=== PATIENT | female | born 1935 | race Caucasian/White ===

== ENCOUNTER 2017-06-09 12:21 | Emergency (ER) | payer MEDICARE, OTHER ==
[~2017-06-09] VITALS: Ht 152.4 cm; Wt 85.3 kg
[~2017-06-09 12:21] MED LIST: AMOXICILLIN 50500 MG PO; ASA5UEC PO; CALTRATE 600 +1 EAC1 PO; CARAFATE 11 GM/10 M1 PO; CHOLESTEROL PILL; EVISTA PO; FUROSEMIDE 40 M40 M1 PO; HYDROCODONE-AP1 EAC6 PO; IBUPROFEN 800800 M1 PO; LEVAQUIN 500 M500 M2 PO; MEDROLDOSEPACK PO; NERVE PILL; ONDANSETRON HCL4 M2 PO; PREDNISONE 10 M10 MG PO; PROTONIX 20 MG20 M1 PO; SERTRALINE HCL50 MG PO; ZOLOFT; ZPAK PO; [UNRECOGNIZED DRUG - OTHER] PO
[2017-06-09] MEDS ORDERED: TYLENOL325 M1 PO (12:40)
[2017-06-09 13:10] LABS: ABSOLUTE BASOPHILS 0.1 thou/uL (0.0-0.2); ABSOLUTE EOSINOPHILS 0.1 thou/uL (0.0-0.7); ABSOLUTE MONOCYTES 0.6 thou/uL (0.0-1.2); BASOPHILS 0.8 %; EOSINOPHILS 0.8 %; HEMATOCRIT 39.6 % (37.0-47.0); HEMOGLOBIN 13.1 gm/dL (12.0-15.0); LYMPHOCYTES 12.6 %; MCHC 33.1 g/dL (28.0-37.0); MCV 87.6 fL (80.0-100.0); MONOCYTES 7.4 %; MPV 9.1 fl. (7.2-11.1); NUCLEATED RBCS 0 /100WBC; PLATELET COUNT* 249 thou/uL (150-400); POLYS 78.4 %; RBC 4.52 mil/uL (4.20-5.00); RDW-CV 14.1 % (10.5-14.5); WBC 7.7 thou/uL (4.0-11.0)
[2017-06-09 13:18] LABS: ANION GAP 4 mmol/L (7-16); BUN 11 mg/dL (7-18); CALCIUM 9.5 mg/dL (8.5-10.1); CHLORIDE 106 mmol/L (98-107); CO2 29 mmol/L (21-32); CREATININE 0.7 mg/dL (0.6-1.3); GLUCOSE 118 mg/dL (70-99); SODIUM 139 mmol/L (136-145)
[2017-06-09 13:25] LABS: ALBUMIN 3.4 g/dL (3.4-5.0); ALKALINE PHOSPHATASE 105 U/L (46-116); LIPASE 175 U/L (73-393); SGOT 18 U/L (15-37); SGPT 19 U/L (30-65); TOTAL BILIRUBIN 0.9 mg/dL (<0.1-1.0); TROPONIN-I LEVEL <0.06 ng/mL (<0.06)
[2017-06-09 14:12] LABS: URINE BILIRUBIN NEGATIVE (Negative); URINE BLOOD TRACE (Negative); URINE CLARITY CLEAR; URINE COLOR YELLOW; URINE GLUCOSE-RANDOM NEGATIVE (Negative); URINE KETONES NEGATIVE (Negative); URINE LEUKOCYTES-REFLEX NEGATIVE (Negative); URINE NITRITE-REFLEX NEGATIVE (Negative); URINE PROTEIN NEGATIVE (Negative); URINE SPECIFIC GRAVITY 1.015 (1.005-1.030); URINE UROBILINOGEN 0.2 E.U./dl (0.2-1.0)
[2017-06-09] MEDS ORDERED: ZOFRAN4 MG PO (16:05)
[2017-06-09 16:10] VITALS: BP 146/76
--- NOTE | 2017-06-09 16:14 | EKG ---
[place] [address] ELECTROCARDIOGRAM REPORT Name: FADY DILLON Room: [facility]#: [id number] Admission: 06/09/17 Attend Phys: Discharge: Date of : 39 Report #: [id number] THIS REPORT FOR: //name// [facility] ED Test Date: 2017-06-09 Test Time: 13:12:59 Pat Name: FADY DILLON Department: Room: Gender: F [place]: DEIRDRE : 1935 Requested By: Ari Golden Order Number: [id number] : Hebert Hdez Measurements Intervals [place] Rate: 58 P: 56 SD: 161 QRS: 12 QRSD: 92 T: 9 QT: 438 QTc: 431 Interpretive Statements Sinus rhythm Compared to ECG 10/20/2016 09:12:00 Atrial premature complex(es) no longer present Electronically Signed On 06-09-2017 16:14:47 CDT by Hebert Hdez [email or web address] <ELECTRONICALLY SIGNED> By: Hebert Hdez MD, [facility] 06/09/17 1614 1312 1312 Hebert Hdez MD, FACC /EPI
== END 2017-06-09 16:18 | disposition home or self-care (01) ==
LOC: M.ERS 12:21
PROVIDERS: Emergency Medicine
DX: K52.9 Noninfective gastroenteritis and colitis, unspecified (principal); M81.0 Age-related osteoporosis without current pathological fracture; Z90.49 Acquired absence of other specified parts of digestive tract

== ENCOUNTER 2019-04-17 17:05 | Inpatient (IN) | payer MEDICARE, OTHER ==
[~2019-04-17] VITALS: Ht 162.6 cm; Wt 80.9 kg
[~2019-04-17 17:05] MED LIST changes: +TYLENOL325 M1 PO; +ZOFRAN4 MG PO
[2019-04-17 17:15] VITALS: BP 180/93
[2019-04-17 17:53] LABS: HEMATOCRIT 39.8 % (37.0-47.0); HEMOGLOBIN 13.5 gm/dL (12.0-15.0); MCH 29.7 pg (26.0-34.0); MCHC 33.8 g/dL (28.0-37.0); MPV 8.9 fl. (7.2-11.1); NUCLEATED RBCS 0 /100WBC; PLATELET COUNT* 248 thou/uL (150-400); RBC 4.53 mil/uL (4.20-5.00); RDW-CV 13.1 % (10.5-14.5); WBC 19.1 thou/uL (4.0-11.0)
[2019-04-17 18:02] LABS: CALCIUM 9.4 mg/dL (8.5-10.1); CREATININE 0.8 mg/dL (0.6-1.3); POTASSIUM 3.7 mmol/L (3.5-5.1)
[2019-04-17 18:07] LABS: ALBUMIN 3.5 g/dL (3.4-5.0); TOTAL BILIRUBIN 1.3 mg/dL (<0.1-1.0); TOTAL PROTEIN 7.2 g/dL (6.4-8.2)
[2019-04-17 18:49] LABS: URINE BILIRUBIN NEGATIVE (Negative); URINE BLOOD NEGATIVE (Negative); URINE CLARITY CLOUDY; URINE COLOR YELLOW; URINE GLUCOSE-RANDOM NEGATIVE (Negative); URINE KETONES NEGATIVE (Negative); URINE LEUKOCYTES-REFLEX NEGATIVE (Negative); URINE NITRITE-REFLEX NEGATIVE (Negative); URINE PROTEIN NEGATIVE (Negative); URINE SPECIFIC GRAVITY 1.015 (1.005-1.030); URINE UROBILINOGEN 0.2 E.U./dl (0.2-1.0)
[2019-04-17 19:17] LABS: ABSOLUTE BASOPHILS 0.4 thou/uL (0.0-0.2); ABSOLUTE LYMPHOCYTES 0.2 thou/uL (0.8-5.3); ABSOLUTE NEUTROPHILS 17.6 thou/uL (1.6-8.1); PLATELET ESTIMATE ADEQUATE
[2019-04-17 19:28] LABS: BACTERIA-REFLEX >30 Many /HPF (None Seen); CASTS None Seen /LPF (None Seen); CRYSTALS None Seen /LPF (None Seen); MUCUS 4-6 Moderate strn/LPF (None Seen); SQUAMOUS >10 Many /LPF (0-3); URINE RBC 0-2 Rare /HPF (0-2); URINE WBC-REFLEX 0-5 Rare /HPF (0-5)
[2019-04-17 20:03] LABS: INFLUENZA A ANTIGEN Negative (Negative); INFLUENZA B ANTIGEN Negative (Negative)
[2019-04-17 21:50] VITALS: BP 165/81
[2019-04-17 22:14] VITALS: BP 197/69
[2019-04-18 04:45] VITALS: BP 131/52
[2019-04-18 08:43] VITALS: BP 139/54
[2019-04-18 11:54] VITALS: BP 116/37
[2019-04-18 11:54] LABS: APTT 25.5 Seconds (25.0-31.3); PROTIME 10.6 Seconds (9.20-11.50)
[2019-04-18 13:08] VITALS: BP 116/37
[2019-04-18 18:30] VITALS: BP 137/53
[2019-04-18 19:50] VITALS: BP 115/46
[2019-04-19 00:43] VITALS: BP 109/73
[2019-04-19 04:00] VITALS: BP 107/36
[2019-04-19 04:05] LABS: HEMATOCRIT 29.1 % (37.0-47.0)
[2019-04-19 05:13] LABS: HEMOGLOBIN 9.9 gm/dL (12.0-15.0)
[2019-04-19 08:27] VITALS: BP 113/35
[2019-04-19 12:11] VITALS: BP 89/32
[2019-04-19 13:15] LABS: CALCIUM 8.4 mg/dL (8.5-10.1); POTASSIUM 4.7 mmol/L (3.5-5.1)
[2019-04-19 18:08] VITALS: BP 107/34
[2019-04-19 19:50] VITALS: BP 109/31
--- NOTE | 2019-04-19 21:48 | OP ---
[address] [address] OPERATIVE REPORT Name: FADY DILLON Room: [address] IN M.R.#: [id number] Admission: 04/17/19 Attend Phys: Andres Paul Discharge: Date of : 39 Report #: [id number] THIS REPORT FOR: //name// cc: ASHU Leonard family physician/PCP ASHU - Aisha family physician/PCP ~ THIS REPORT FOR: //name// CC: ASHU physician/PCP Andrew Amezcua DATE OF SERVICE: 04/18/2019 PREOPERATIVE DIAGNOSIS: Left intertrochanteric femur fracture, comminuted, displaced. POSTOPERATIVE DIAGNOSIS: Left intertrochanteric femur fracture, comminuted, displaced. PROCEDURE: Open reduction and internal fixation, left comminuted intertrochanteric femur fracture. SURGEON: Anselmo Donato DO SEARCH ENGINE OPTIMIZATION STRATEGIST: Benny Trujillo DO ANESTHESIA: General. ANTIBIOTICS: Ancef IV. FLUIDS: 400 mL lactated Ringer's. ESTIMATED BLOOD LOSS: 100 mL. COMPLICATIONS: None. SPECIMENS: None. DRAINS: None. CONDITION OF PATIENT: Stable to PACU. IMPLANTS: Herbie Gamma nail 10 x 170 mm x 125 degree with lag screw and distal interlocking static screw. INDICATIONS FOR PROCEDURE: The patient admitted to [facility] with left hip fracture. We were consulted. I went over with the patient and [address] [place] [address] OPERATIVE REPORT Name: FADY DILLON Room: [address] IN ..#: [id number] Admission: 04/17/19 Attend Phys: Andres Paul Discharge: Date of : 39 Report #: [id number] her daughter and other loved ones that were present the diagnosis, exam findings, imaging, treatment options, plan of surgery with reasoning indications and risks and complications. Please see her notes for full details of our discussion had. She wished to proceed with surgery as planned. We obtained consent. DESCRIPTION OF PROCEDURE: I marked the left lower extremity in the presence of the operative team members. Everyone agreed this was correct. She was taken back to the operative suite where a briefing was performed indicating correct patient, procedure, site, antibiotics and that implants were present and sterile. All team members agreed. General anesthetic administered, transferred over to the operative table in supine position, well-padded and secured. The left lower extremity was sterilely prepped and draped in standard fashion. It should be noted that prior to that we performed a closed reduction, where we brought in C-arm on multiplanar imaging and confirmed that we overall established reduction; however, there would need to be an open component of this with at least a bone hook to try and close down some of the comminution. The left lower extremity had been sterilely prepped and draped in standard fashion. Timeout was performed indicating correct patient, procedure, site, antibiotics and that implants were present and sterile. All team members agreed. Marked out incisions with the aid of C-arm imaging. Proximal to the greater trochanter, scalpel was taken through skin, dissection down to the greater trochanter. Smooth-tipped guidewire inserted into the femur and advanced on multiplanar imaging to be in appropriate position. We reamed over that. Implant timeout had been performed. We threw the final nail. Prior to passing the nail, we made sure that we were able to place a bone hook and reduce the comminuted aspect hole for this and also aid in the malreduction or malrotation. Nail was passed uneventfully. Made an incision for a double sleeve for lag screw placement. This was placed up against bone and multiplanar C-arm imaging helped to advance the guidewire across into the femoral neck and head; measured, reamed, and placed an appropriate-size screw, making sure that we took several images during screw insertion and we placed a second bone hook and holding those 2 bone hooks to aid in the reduction. The screw went in uneventfully, compressed through the nail, engaged our setscrew, backed off quarter turn confirming its engagement by no longer being able to advance the screwdriver handle. Removed the screwdriver and guidewire. We then made an incision distally for triple sleeve that was placed down to bone, drilled, measured and placed an appropriate distal static interlock screw. Removed the external aiming guide. Final images showed appropriate reduction and placement of hardware. Saved images and dismissed C-arm. Irrigated all incision sites with normal saline. Deep layers were closed with 0 Vicryl [id number] interrupted, subcutaneously closed with 2-0 Monocryl buried deep and daryl for skin. Debriefing performed where we confirmed procedure, blood loss, and that all counts were correct and final. All team members agreed. Sterile silver-impregnated dressings were applied. She was transferred off the operative table to her bed in supine position appropriately with no [address] [address] OPERATIVE REPORT Name: FADY DILLON Room: [address] IN .R.#: [id number] Admission: 04/17/19 Attend Phys: Andres Paul Discharge: Date of : 39 Report #: [id number] complication, extubated and taken to PACU stable. POSTOPERATIVE COURSE AND EVALUATION: I spoke with her daughter, addressed questions, she had stated satisfaction. She was thankful for my time and efforts. The patient was resting in PACU, stable vital signs, pain controlled, neurovascularly intact. Compartments soft and compressible. Negative Homans sign. PACU films showed stable implants and reduction. Weightbear as tolerated. PT, OT. DVT prophylaxis will be both pharmacological and mechanical until instructed otherwise. I reviewed the orders and postoperative plan with the resident physician, Dr. Trujillo. No changes at this time. Encouraged nursing, medical staff, the patient and her family to call anytime with questions or concerns. Case management to help with discharge planning. <ELECTRONICALLY SIGNED> By: Anselmo Donato DO 04/19/19 2148 1705 1912Anselmo Donato DO /nt
[2019-04-20] VITALS (8 sets, daily range): BP systolic 104–125; BP diastolic 31–49
[2019-04-20 05:02] LABS: HEMATOCRIT 21.1 % (37.0-47.0)
[2019-04-20 05:24] LABS: HEMOGLOBIN 7.3 gm/dL (12.0-15.0)
[2019-04-20] MEDS ORDERED: HYDROCODON-ACE1 EAC7 PO (11:56)
[2019-04-20] MEDS ORDERED: ELIQUIS5 MG PO (11:56)
[2019-04-20] MEDS ORDERED: MILK OF MA2400 MG/11 PO (11:56)
[2019-04-20] MEDS ORDERED: COLACE100 MG PO (11:56)
[2019-04-21 05:00] VITALS: BP 132/51
[2019-04-21 05:08] LABS: ABSOLUTE BASOPHILS 0.1 thou/uL (0.0-0.2); ABSOLUTE EOSINOPHILS 0.2 thou/uL (0.0-0.7); ABSOLUTE LYMPHOCYTES 1.1 thou/uL (0.8-5.3); ABSOLUTE MONOCYTES 1.2 thou/uL (0.0-1.2); ABSOLUTE NEUTROPHILS 6.6 thou/uL (1.6-8.1); BASOPHILS 0.7 %; EOSINOPHILS 2.2 %; HEMATOCRIT 21.8 % (37.0-47.0); HEMOGLOBIN 7.5 gm/dL (12.0-15.0); MCH 30.6 pg (26.0-34.0); MCHC 34.3 g/dL (28.0-37.0); MCV 89.3 fL (80.0-100.0); MONOCYTES 12.9 %; MPV 9.5 fl. (7.2-11.1); NUCLEATED RBCS 0 /100WBC; PLATELET COUNT* 192 thou/uL (150-400); POLYS 72.2 %; RBC 2.44 mil/uL (4.20-5.00); RDW-CV 12.9 % (10.5-14.5); WBC 9.1 thou/uL (4.0-11.0)
[2019-04-21 05:28] LABS: CALCIUM 8.9 mg/dL (8.5-10.1); CREATININE 0.7 mg/dL (0.6-1.3); POTASSIUM 4.2 mmol/L (3.5-5.1)
[2019-04-21 08:00] VITALS: BP 125/43
[2019-04-21 12:00] VITALS: BP 140/41
--- NOTE | 2019-04-28 14:56 | EKG ---
[place] [address] ELECTROCARDIOGRAM REPORT Name: LYNDSEY DILLONTY Jarod Room: [address] IN M.R.#: [id number] Admission: 04/17/19 Attend Phys: Andrew Amezcua Discharge: 04/21/19 Date of : 39 Date of Service: 04/17/19 1715 Report #: [id number] THIS REPORT FOR: //name// [facility] ED Test Date: 2019-04-17 Test Time: 17:15:20 Pat Name: FADY DILLON Department: Room: [facility] Gender: F On Site Manager: BHARGAVI : 1935 Requested By: Davie Bowser Order Number: [id number] MD: Rocky Cervantes Measurements Intervals [place] Rate: 82 P: 62 [place]: 158 QRS: 27 QRSD: 82 T: 23 QT: 415 QTc: 485 Interpretive Statements Sinus rhythm Probable left atrial enlargement Borderline prolonged QT interval Compared to ECG 06/09/2017 13:12:59 No significant changes Electronically Signed On 04-18-2019 16:31:53 DUMPLING MACHINE OPERATOR by Rocky Cervantes [email or web address] <ELECTRONICALLY SIGNED> By: Rocky Cervantes MD, FAC 04/18/19 1631 1715 1715 Rocky Cervantes MD, [facility] /EPI
== END 2019-04-21 14:22 | DRG 481 ==
LOC: M.ERS 17:05 → M.2W 20:18 → M.TBA-ER 20:18 → M.2W 21:39
PROVIDERS: Emergency Medicine; Emergency Medicine Emergency Medical Services; Internal Medicine; Orthopaedic Surgery; ADMIT Internal Medicine
PROC: 0QS706Z Reposition Left Upper Femur with Intramedullary Internal Fixation Device, Open Approach (ICD-10-PCS; principal; 2019-04-18)
DX: M80.852A Other osteoporosis with current pathological fracture, left femur, initial encounter for fracture (principal); R65.10 Systemic inflammatory response syndrome (SIRS) of non-infectious origin without acute organ dysfunction; D62 Acute posthemorrhagic anemia; S72.142A Displaced intertrochanteric fracture of left femur, initial encounter for closed fracture; I95.1 Orthostatic hypotension; L40.9 Psoriasis, unspecified; F32.9 Major depressive disorder, single episode, unspecified; Z60.2 Problems related to living alone; R01.1 Cardiac murmur, unspecified; M17.12 Unilateral primary osteoarthritis, left knee; F41.9 Anxiety disorder, unspecified; W19.XXXA Unspecified fall, initial encounter; Z85.3 Personal history of malignant neoplasm of breast; Z90.49 Acquired absence of other specified parts of digestive tract; Z92.3 Personal history of irradiation; Z79.899 Other long term (current) drug therapy; Y93.89 Activity, other specified; Y92.89 Other specified places as the place of occurrence of the external cause; Y99.8 Other external cause status

== ENCOUNTER 2019-04-21 14:20 | Inpatient (IN) | payer MEDICARE, OTHER ==
[~2019-04-21] VITALS: Ht 160 cm; Wt 80.3 kg
[~2019-04-21 14:20] MED LIST changes: +COLACE100 MG PO; +ELIQUIS5 MG PO; +HYDROCODON-ACE1 EAC7 PO; +MILK OF MA2400 MG/11 PO
[2019-04-21 19:20] VITALS: BP 119/40
[2019-04-22 07:00] VITALS: BP 133/40
[2019-04-22 09:24] LABS: HEMATOCRIT 21.9 % (37.0-47.0); HEMOGLOBIN 7.5 gm/dL (12.0-15.0); MCH 30.6 pg (26.0-34.0); MCHC 34.1 g/dL (28.0-37.0); MCV 89.6 fL (80.0-100.0); MPV 8.8 fl. (7.2-11.1); RBC 2.45 mil/uL (4.20-5.00); RDW-CV 13.1 % (10.5-14.5); WBC 7.6 thou/uL (4.0-11.0)
[2019-04-22 09:36] LABS: CALCIUM 9.2 mg/dL (8.5-10.1); CREATININE 0.7 mg/dL (0.6-1.3); POTASSIUM 4.3 mmol/L (3.5-5.1)
[2019-04-22 19:40] VITALS: BP 129/49
[2019-04-23 07:38] VITALS: BP 144/56
[2019-04-23 19:30] VITALS: BP 157/42
[2019-04-24 07:28] VITALS: BP 141/59
[2019-04-24 10:03] LABS: HEMATOCRIT 23.6 % (37.0-47.0); HEMOGLOBIN 8.1 gm/dL (12.0-15.0); MCH 30.9 pg (26.0-34.0); MCHC 34.5 g/dL (28.0-37.0); MCV 89.8 fL (80.0-100.0); MPV 8.9 fl. (7.2-11.1); RBC 2.62 mil/uL (4.20-5.00); WBC 9.9 thou/uL (4.0-11.0)
[2019-04-24 16:00] VITALS: BP 111/46
[2019-04-24 17:32] VITALS: BP 107/28
[2019-04-24 19:05] VITALS: BP 122/50
[2019-04-25 01:29] VITALS: BP 137/63
[2019-04-25 07:29] VITALS: BP 137/55
[2019-04-25 19:15] VITALS: BP 129/46
[2019-04-26 07:00] VITALS: BP 125/44
--- NOTE | 2019-04-26 16:32 | 2DMMODE ---
[place] [address] 2 D/M-MODE ECHOCARDIOGRAM Name: SANTANAFADY Jarod Room: [address] ADM IN .R.#: [id number] Admission: 04/21/19 Attend Phys: Jimmy James MD Discharge: Date of : 39 Date of Service: 04/26/19 1630 Report #: [id number] THIS REPORT FOR: cc: FAM - No family physician/PCP FAM - No family physician/PCP Rocky Cervantes MD [facility] ~ APPROVED REPORT Study performed: 04/26/2019 14:42:17 EXAM: Comprehensive 2D, Doppler, and color-flow Echocardiogram Patient Location: In-Patient Room #: [facility] Status: routine BSA: 1.84 HR: 80 bpm BP: 125/44 mmHg Rhythm: NSR Other Information Study Quality: Good Indications Murmur 2D Dimensions IVSd: 11.45 (7-11mm) LVOT Diam: 19.87 (18-24mm) LVDd: 36.43 mm PWd: 9.78 (7-11mm) Ascending Ao: 32.47 (22-36mm) LVDs: 19.94 (25-40mm) Aortic Root: 28.52 mm Volumes Left Atrial Volume (Systole) LA ESV Index: 38.10 mL/m2 Aortic Valve AoV Peak Rachid.: 2.44 m/s AO Peak Gr.: 23.78 mmHg LVOT Max P.92 mmHg AO Mean Gr.: 12.77 mmHg LVOT Mean P.41 mmHg LVOT Max V: 1.32 m/s AO V2 VTI: 48.02 cm LVOT Mean V: 0.85 m/s OTONIEL (VTI): 1.91 cm2 LVOT V1 VTI: 29.65 [place] [address] 2 D/M-MODE ECHOCARDIOGRAM Name: FADY DILLON Room: [address] IN ..#: [id number] Admission: 04/21/19 Attend Phys: Jimmy James MD Discharge: Date of : 39 Date of Service: 04/26/19 1630 Report #: [id number] Mitral Valve E/A Ratio: 1.06 MV Decel. Time: 209.27 ms MV E Max Rachid.: 1.15 m/s MV PHT: 60.69 ms MVA (PHT): 3.63 cm2 TDI E/Lateral E': 9.58 E/Medial E': 9.58 Medial E' Rachid.: 0.12 m/s Lateral E' Rachid.: 0.12 m/s Pulmonary Valve PV Peak Rachid.: 1.25 m/s PV Peak Gr.: 6.30 mmHg Tricuspid Valve RAP Estimate: 5.00 mmHg TR Peak Gr.: 27.88 mmHg RVSP: 32.00 mmHg PA Pressure: 32.00 mmHg Left Ventricle The left ventricle is normal size. There is normal LV segmental wall motion. There is normal left ventricular wall thickness. Left ventricular systolic function is normal. The left ventricular ejection fraction is within the normal range. LVEF is 60-65%. The left ventricular diastolic function is normal. Right Ventricle The right ventricle is normal size. The right ventricular systolic function is normal. Atria Left atrium is mildly dilated. The right atrium size is normal. Aortic Valve Mild aortic valve sclerosis. No aortic regurgitation is present. Mild aortic stenosis. Mitral Valve The mitral valve is normal in structure. Trace mitral regurgitation. No evidence of mitral valve stenosis. Tricuspid Valve The tricuspid valve is normal in structure. Mild tricuspid regurgitation. estimated pa pressure 30 [place] [address] 2 D/M-MODE ECHOCARDIOGRAM Name: FADY DILLON Room: [address] IN [facility]#: [id number] Admission: 04/21/19 Attend Phys: Jimmy James MD Discharge: Date of : 39 Date of Service: 04/26/19 1630 Report #: [id number] Pulmonic Valve The pulmonary valve is normal in structure. There is no pulmonic valvular regurgitation. Great Vessels The aortic root is normal in size. IVC is normal in size and collapses >50% with inspiration. Pericardium There is no pericardial effusion. <Conclusion> LVEF is 60-65%. Left atrium is mildly dilated. Mild aortic stenosis. <ELECTRONICALLY SIGNED> By: Rocky Cervantes MD, FACC 04/26/191629 29 29 Rocky Cervantes MD, FACC /INF
[2019-04-26 19:49] VITALS: BP 124/52
[2019-04-27 07:20] VITALS: BP 136/44
[2019-04-27 20:00] VITALS: BP 126/43
[2019-04-28 08:30] VITALS: BP 109/47
[2019-04-28 20:15] VITALS: BP 144/48
[2019-04-29 07:47] VITALS: BP 148/60
[2019-04-29 20:00] VITALS: BP 139/49
[2019-04-30 08:12] VITALS: BP 160/49
[2019-04-30 20:09] VITALS: BP 136/41
[2019-04-30 22:55] VITALS: BP 137/58
[2019-05-01 07:36] VITALS: BP 149/66
[2019-05-01 19:30] VITALS: BP 140/51
[2019-05-02 05:14] LABS: HEMOGLOBIN 8.2 gm/dL (12.0-15.0); MCHC 34.1 g/dL (28.0-37.0); MPV 7.8 fl. (7.2-11.1); RBC 2.64 mil/uL (4.20-5.00); RDW-CV 13.9 % (10.5-14.5); WBC 9.1 thou/uL (4.0-11.0)
[2019-05-02 05:29] LABS: ALBUMIN 2.4 g/dL (3.4-5.0); CREATININE 0.6 mg/dL (0.6-1.3); MAGNESIUM 1.8 mg/dL (1.8-2.4); PHOSPHORUS* 3.1 mg/dL (2.5-4.9); POTASSIUM 4.3 mmol/L (3.5-5.1)
[2019-05-02 08:30] VITALS: BP 134/53
[2019-05-02 19:40] VITALS: BP 138/58
[2019-05-03 07:33] VITALS: BP 133/47
[2019-05-03 19:55] VITALS: BP 126/58
[2019-05-04 08:00] VITALS: BP 136/60
[2019-05-04 16:28] VITALS: BP 136/60
[2019-05-04 20:00] VITALS: BP 127/45; BP 148/42
[2019-05-05 07:44] VITALS: BP 125/54
[2019-05-05] MEDS ORDERED: ASPIRIN325 PO (11:51)
[2019-05-05] MEDS ORDERED: SERTRALINE HCL50 MG PO (11:51)
[2019-05-05 20:00] VITALS: BP 121/43
[2019-05-06 07:00] VITALS: BP 149/58
[2019-05-06 09:54] VITALS: BP 149/58
[2019-05-06 10:57] VITALS: BP 149/58
[2019-05-06] MEDS ORDERED: NORCO 10-325 T1 EACH PO (13:04)
[2019-05-06] MEDS ORDERED: TRAMADOL 50 MG50 MG PO (13:21)
[2019-05-06 14:00] VITALS: BP 149/58
== END 2019-05-06 14:00 | disposition home health service (06) | DRG 543 ==
LOC: M.REH 14:20 → M.TBA 14:20 → M.REH 15:01
PROVIDERS: Family Medicine; ADMIT Physical Medicine & Rehabilitation
DX: M80.052A Age-related osteoporosis with current pathological fracture, left femur, initial encounter for fracture (principal); D62 Acute posthemorrhagic anemia; F32.9 Major depressive disorder, single episode, unspecified; Z85.3 Personal history of malignant neoplasm of breast; Z90.49 Acquired absence of other specified parts of digestive tract; L40.9 Psoriasis, unspecified